=== PATIENT | female | born 1990 | race Caucasian/White ===

== ENCOUNTER 2021-08-03 19:06 | Emergency (ER) | payer MEDICAID ==
[~2021-08-03] VITALS: Ht 167.6 cm; Wt 108.9 kg
[2021-08-03 22:42] LABS: Urine Bacteria FEW /hpf (None Seen); Urine Blood 2+ /uL (Negative); Urine Mucus FEW (None Seen); Urine WBC 2 /hpf (0 - 5)
[2021-08-03 23:01] LABS: Basophils # (auto) 0.1 10 ^3/uL (0-0.2); Basophils % (auto) 0.9 % (0.0-2.0); Eosinophils # (auto) 0.2 10 ^3/uL (0-0.8); Eosinophils % (auto) 1.7 % (0.0-7.0); Hematocrit 39.3 % (36.0-46.0); Hemoglobin 13.1 g/dL (12.2-16.2); Lymphocytes # (auto) 2.7 10 ^3/uL (0.4-5.4); Lymphocytes % (auto) 29.8 % (10.0-50.0); Mean Corpuscular Hemoglobin 30.1 pg (28.0-32.0); Mean Corpuscular Hgb Conc. 33.3 g/dL (32.0-36.0); Mean Corpuscular Volume 90.3 fL (80.0-100.0); Monocytes # (auto) 0.5 10 ^3/uL (0-1.3); Monocytes % (auto) 5.9 % (0.0-12.0); Neutrophils # (auto) 5.5 10 ^3/uL (1.6-8.6); Neutrophils % (auto) 61.7 % (37.0-80.0); Nucleated Red Blood Cells % 0.1 %; Red Blood Cells 4.35 10^6/uL (4.0-5.20)
[2021-08-03 23:20] LABS: Albumin 4.2 g/dL (3.4-5.0); BUN/Creatinine Ratio 14.6; Calcium 9.7 mg/dL (8.5-10.1); Potassium 3.9 mmol/L (3.5-5.1)
[2021-08-03 23:22] LABS: Bilirubin, Total 0.2 mg/dL (0.2-1.0); Total Protein 8.3 g/dL (6.4-8.2)
[2021-08-04 00:38] VITALS: BP 135/73
== END 2021-08-04 02:25 | disposition home or self-care (01) ==
LOC: ER 19:06
DX: N83.209 Unspecified ovarian cyst, unspecified side (principal)
CPT/HCPCS: 36415; 76856; 80053; 81001; 84702; 85025

== ENCOUNTER 2022-10-15 18:22 | Emergency (ER) | payer MEDICAID ==
[~2022-10-15] VITALS: Ht 167.6 cm; Wt 120.0 kg
[2022-10-15 18:32] VITALS: BP 124/70
[2022-10-15 20:35] LABS: Urine Bacteria NONE SEEN /hpf (None Seen); Urine Blood Negative /uL (Negative); Urine Mucus FEW (None Seen); Urine WBC 6 /hpf (0 - 5)
[2022-10-15 20:41] LABS: Alcohol, Urine < 3.0 mg/dL (0-10); Amphetamine Screen, Urine NEGATIVE (NEGATIVE); Barbiturate Scree,Urine NEGATIVE (NEGATIVE); Benzodiazephine Screen, Urine POSITIVE (NEGATIVE); Cannabinoid Screen, Urine NEGATIVE (NEGATIVE); Cocaine Screen, Urine NEGATIVE (NEGATIVE); Opiate Scree,Urine NEGATIVE (NEGATIVE); Phencyclidine Screen, Urine NEGATIVE (NEGATIVE)
== END 2022-10-16 00:24 | disposition left against medical advice (07) ==
LOC: ER 18:22
DX: R10.2 Pelvic and perineal pain (principal); R30.9 Painful micturition, unspecified; Z53.21 Procedure and treatment not carried out due to patient leaving prior to being seen by health care provider
CPT/HCPCS: 80307; 81001

== ENCOUNTER 2024-11-19 06:07 | Emergency (ER) | payer MEDICAID ==
[~2024-11-19] VITALS: Ht 167.6 cm; Wt 100.1 kg
[2024-11-19 06:58] LABS: Urine Bacteria None Seen /hpf (None Seen)
[2024-11-19 07:08] LABS: Basophils # (auto) 0 10 ^3/uL (0-0.2); Basophils % (auto) 0.3 % (0.0-2.0); Eosinophils # (auto) 0.1 10 ^3/uL (0-0.8); Eosinophils % (auto) 1.5 % (0.0-7.0); Hemoglobin 13.2 g/dL (12.2-16.2); Lymphocytes # (auto) 1.9 10 ^3/uL (0.4-5.4); Lymphocytes % (auto) 23.4 % (10.0-50.0); Mean Corpuscular Hgb Conc. 33.9 g/dL (32.0-36.0); Mean Corpuscular Volume 94.2 fL (80.0-100.0); Monocytes # (auto) 0.6 10 ^3/uL (0-1.3); Monocytes % (auto) 6.8 % (0.0-12.0); Neutrophils # (auto) 5.6 10 ^3/uL (1.6-8.6); Platelet Count (auto) 219 10^3/uL (140-450); Red Blood Cells 4.14 10^6/uL (4.0-5.20); White Blood Cell 8.2 10^3/uL (4.4-10.8)
--- NOTE | 2024-11-19 07:09 | ED.PDOC ---
GI ASSESSMENT HPI Comments 34 year old female presents to the ED with a chief complaint of abdominal pain onset 1 day. Patient has been experiencing abdominal pain for the past day as well as dysuria. She took AZO this morning with no improvement of symptoms, pain worsen, patient came to ED. Denies any PMHx as well as dizziness, headache, chest pain, nausea, vomiting, diarrhea, fevers, chills, hematuria. No other symptoms or modifying factors present at this time. Chief Complaint: Abdominal Pain Time Seen by MD: 06:35 Primary Care Provider: DR ANDERSON Reviewed Notes: Medications, Allergies Allergies: Coded Allergies: NO KNOWN ALLERGIES (Unverified , 10/15/22) Information Source: Patient Mode of Arrival: Ambulatory Timing: Days Duration: Since onset Prehospital treatment: Other (AZO) Quality: Sharp Vomitus: None Severity: Moderate Recent: None Recent Hx of: None Pain Location: LLQ Modifying Factors: Nothing Associated sign and symptoms: Abdominal Pain (LLQ) Past Medical History PAST MEDICAL HISTORY: Denies Surgical History: Denies all surgeries CLINICAL INSTRUCTOR History: No Pertinent CLINICAL INSTRUCTOR History Family History Family History: Unknown Social History Smoker: Cigarettes Alcohol: Denies ETOH Use Drugs: Denies Drug Use Lives In: Home Constitutional: denies: chills, diaphoresis, fatigue, fever, malaise, sweats, weakness, others EENTM: denies: blurred vision, double vision, ear bleeding, ear discharge, ear drainage, ear pain, ear ringing, eye pain, eye redness, hearing loss, mouth pain, mouth swelling, nasal discharge, nose bleeding, nose congestion, nose pain, photophobia, tearing, throat pain, throat swelling, voice changes, others Respiratory: denies: cough, hemoptysis, orthopnea, SOB at rest, shortness of breath, SOB with excertion, stridor, wheezing, others Cardiovascular: denies: chest pain, dizzy spells, diaphoresis, Dyspnea on exertion, edema, irregular heart beat, left arm pain, lightheadedness, palpitations, PND, syncope, others Gastrointestinal: reports: abdominal pain (LLQ); denies: abdomen distended, blood streaked bowels, constipated, diarrhea, dysphagia, difficulty swallowing, hematemesis, melena, nausea, poor appetite, poor fluid intake, rectal bleeding, rectal pain, vomiting, others Genitourinary: reports: dysuria; denies: abnormal vagina bleeding, burning, dyspareunia, flank pain, frequency, hematuria, incontinence, pain, , vagina discharge, urgency, others Neurological: denies: dizziness, fainting, headache, left sided numbness, left sided weakness, numbness, paresthesia, pre-existing deficit, right sided numbness, right sided weakness, seizure, speech problems, tingling, tremors, weakness, others Musculoskeletal: denies: back pain, gout, joint pain, joint swelling, muscle pain, muscle stiffness, neck pain, others Integumetry: denies: bruises, change in color, change in hair/nails, dryness, laceration, lesions, lumps, rash, wounds, others Allergic/Immunocompromised: denies: Difficulty Healing, Frequent Infections, Hives, Itching, others Hematologic/Lymphatic: denies: anemia, blood clots, easy bleeding, easy bruising, swollen glands, others Endocrine: denies: excessive hunger, excessive sweating, excessive thirst, excessive urination, flushing, intolerance to cold, intolerance to heat, unexplained weight gain, unexplained weight loss, others Psychiatric: denies: anxiety, bipolar disorder, depression, hopeless, panic disorder, schizophrenia, sleepless, suicidal, others All Other Systems: Reviewed and Negative Physical Exam General Appearance: No Apparent Distress, Normal HEENT: Normal ENT Inspection, Pharynx Normal, TMs Normal Neck: Full Range of Motion, Non-Tender, Normal, Normal Inspection Respiratory: Chest Non-Tender, Lungs Clear, No Accessory Muscle Use, No Respiratory Distress, Normal Breath Sounds Cardiovascular: No Edema, No JVD, No Murmur, No Gallop, Normal Peripheral Pulses, Regular Rate/Rhythm Breast Exam: Deferred Gastrointestinal: No Organomegaly, Non Tender, No Pulsatile Mass, Normal Bowel Sounds, Soft Genitalia: Deferred Pelvic: Deferred Rectal: Deferred Extremities: No calf tenderness, Normal capillary refill, Normal inspection, Normal range of motion, Non-tender, No pedal edema Musculoskeletal : Apperance: Normal Neurologic: Alert, end user consultant II-XII nml as Tested, No Motor Deficits, Normal Affect, Normal Mood, No Sensory Deficits Cerebellar Function: Normal Reflexes: Normal Skin: Dry, Normal Color, Warm Lymphatic: No Adenopathy Was a procedure done? Was a procedure done?: No GI differential Dx Differential Diagnosis: Gastroenteritis, Hepatitis, Pancreatitis, UTI, Urolithiasis, Dehydration X-Ray, Labs, Meds, VS Vital Signs Date Time Temp Pulse Resp B/P (MAP) Pulse Ox O2 Delivery O2 Flow Rate FiO2 11/19/24 06:17 98.1 77 14 119/84 (96) 98 98.1 Lab Test 11/19/24 06:47 11/19/24 06:21 Range/Units White Blood Count 8.2 4.4-10.8 10^3/uL Red Blood Count 4.14 4.0-5.20 10^6/uL Hemoglobin 13.2 12.2-16.2 g/dL Hematocrit 39.0 36.0-46.0 % Mean Corpuscular Volume 94.2 80.0-100.0 fL Mean Corpuscular Hemoglobin 32.0 28.0-32.0 pg Mean Corpuscular Hemoglobin Concent 33.9 32.0-36.0 g/dL Red Cell Distribution Width 13.0 11.8-14.3 % Platelet Count 219 140-450 10^3/uL Mean Platelet Volume 8.3 6.9-10.8 fL Neutrophils (%) (Auto) 68.0 37.0-80.0 % Lymphocytes (%) (Auto) 23.4 10.0-50.0 % Monocytes (%) (Auto) 6.8 0.0-12.0 % Eosinophils (%) (Auto) 1.5 0.0-7.0 % Basophils (%) (Auto) 0.3 0.0-2.0 % Neutrophils # (Auto) 5.6 1.6-8.6 10 ^3/uL Lymphocytes # (Auto) 1.9 0.4-5.4 10 ^3/uL Monocytes # (Auto) 0.6 0-1.3 10 ^3/uL Eosinophils # (Auto) 0.1 0-0.8 10 ^3/uL Basophils # (Auto) 0 0-0.2 10 ^3/uL Nucleated Red Blood Cells 0.0 % Sodium Level 142 136-145 mmol/L Potassium Level 3.9 3.5-5.1 mmol/L Chloride Level 111 H 98-107 mmol/L Carbon Dioxide Level 24 20-31 mmol/L Anion Gap 7 5-15 Blood Urea Nitrogen 12 9-23 mg/dL Creatinine 0.78 0.550-1.02 mg/dL Glomerular Filtration Rate Calc 103 >90 mL/min BUN/Creatinine Ratio 15.4 10.0-20.0 Serum Glucose 74 74-106 mg/dL Calcium Level 10.0 8.7-10.4 mg/dL Urine Color Dark-brown Yellow Urine Clarity Turbid H Clear Urine pH 5.5 5.0-9.0 Urine Specific Clarks 1.034 1.001-1.035 Urine Protein 1+ H Negative Urine Ketones Negative Negative Urine Blood Negative Negative /uL Urine Nitrite 1+ H Negative Urine Bilirubin Negative Negative Urine Urobilinogen 4 H Negative mg/dL Urine Leukocyte Esterase Negative Negative /uL Urine RBC 6 0 - 4 /hpf Urine Microscopic WBC 3 0-5 /HPF Urine Squamous Epithelial Cells Few <5 /hpf Urine Bacteria None seen None Seen /hpf Urine Mucus Few None Seen Urine Glucose Normal Normal mg/dL Urine Test Negative Negative Time of 1ST Reevaluation: 07:05 Reevaluation 1ST: Unchanged Patient Education/Counseling: Diagnosis, Treatment, Prognosis Family Education/Counseling: No Family Present SEPSIS Sepsis Screen Date sepsis recognized/suspect: Nov 19, 2024 Time Sepsis recognized/suspect: 609 Recent Procedure: No On Antibiotic Therapy: No Respiratory Rate >20: No Heart Rate >90: No Temp<36 C (96.8 F) or >38.3 C: No SBP <90 or MAP <65 mmHG: No New Acute Mental Status Change: No Is the patient on CPAP, BIPAP,: No Vital Signs Date Time Temp Pulse Resp B/P (MAP) Pulse Ox O2 Delivery O2 Flow Rate FiO2 11/19/24 06:17 98.1 77 14 119/84 (96) 98 98.1 Laboratory Tests Test 11/19/24 06:47 White Blood Count 8.2 10^3/uL (4.4-10.8) Departure 1 Departure Time of Disposition: 08:53 (She with a urinary tract infection. We will discharge patient home with outpatient follow up) Impression: Primary Impression: Acute cystitis Qualified Codes: N30.01 - Acute cystitis with hematuria Disposition: HOME / SELF CARE / HOMELESS Condition: Stable Additional Instructions: You have a urinary tract infection. You were prescribed antibiotics. Please take as directed. You can take Tylenol Motrin as needed for pain. It is important that he follow up with the regular doctor within 1 week to en sure you are doing better. If your symptoms worsen or you have any other concerns then please return to the emergency room. e-Prescriptions Cefdinir (Cefdinir) 300 Mg Cap 1 CAP PO BID for 7 Days, #14 CAP Prov: TATYANA STRATTON MD 11/19/24 Discharged With: Self Critical Care Note Critical Care Time?: No Stability Stability form required: No I personally scribed for TATYANA STRATTON MD ([email or web address]) on 11/19/24 at 07:09. Electronically submitted by Ana Esparza ([email or web address]). TATYANA STRATTON MD Nov 19, 2024 07:09
[2024-11-19 07:13] LABS: Potassium 3.9 mmol/L (3.5-5.1); Sodium 142 mmol/L (136-145)
[2024-11-19 07:14] LABS: Anion Gap 7 (5-15); Carbon Dioxide 24 mmol/L (20-31)
[2024-11-19 07:19] LABS: Urine Blood Negative /uL (Negative); Urine Clarity Turbid (Clear); Urine Color Dark-Brown (Yellow); Urine Mucus FEW (None Seen); Urine Protein, UAD 1+ (Negative); Urine Specific Gravity 1.034 (1.001-1.035); Urine Squamous Epithelial Cell FEW /hpf (<5); Urine Urobilinogen 4 mg/dL (Negative); Urine WBC 3 /HPF (0-5); Urine pH 5.5 (5.0-9.0)
[2024-11-19 07:19] LABS: BUN/Creatinine Ratio 15.4 (10.0-20.0); Blood Urea Nitrogen 12 mg/dL (9-23); Glucose 74 mg/dL (74-106)
[2024-11-19 07:25] LABS: Chloride 111 mmol/L (98-107)
[2024-11-19] MEDS ORDERED: cefTRIAXone 1GM/50ML D5W 50 ML IV ONE (07:30)
[2024-11-19] MEDS ORDERED: CEFD300C2 PO (08:54)
[2024-11-19] MEDS: cefTRIAXone W LIDOCAINE 1 GM IM IM ONE (09:00)
[2024-11-19 09:52] VITALS: BP 128/78; PULSE 82; RESP 16; TEMP 98.4; O2SAT 98
== END 2024-11-19 09:54 | disposition home or self-care (01) ==
LOC: ER 06:07
DX: N30.00 Acute cystitis without hematuria (principal); F17.210 Nicotine dependence, cigarettes, uncomplicated
CPT/HCPCS: 36415; 80048; 81001; 81025; 85025; 96372; 99283; J0696